=== PATIENT | female | born 1965 ===

== ENCOUNTER 2018-05-29 08:13 | Day surgery (SDC) | payer OTHER ==
[~2018-05-29] VITALS: Ht 165.1 cm; Wt 79.4 kg
[2018-05-29 08:59] VITALS: BP 139/88
[2018-05-29 18:27] VITALS: BP 147/85
== END 2018-05-29 18:15 | disposition home or self-care (01) ==
LOC: DS 08:13 → NM 09:00 → DS 09:00 → OR 12:30 → DS 18:15
PROVIDERS: Surgery
PROC: 07B50ZZ Excision of Right Axillary Lymphatic, Open Approach (ICD-10-PCS; 2018-05-29)
PROC: 05PY33Z Removal of Infusion Device from Upper Vein, Percutaneous Approach (ICD-10-PCS; 2018-05-29)
PROC: 0HBT0ZZ Excision of Right Breast, Open Approach (ICD-10-PCS; principal; 2018-05-29 12:30)
DX: C50.511 Malignant neoplasm of lower-outer quadrant of right female breast (principal); N18.9 Chronic kidney disease, unspecified; Z17.0 Estrogen receptor positive status [ER+]; Z92.21 Personal history of antineoplastic chemotherapy
CPT/HCPCS: 88329; 88344; 88361; J0690; J1170; J2405; J2704; J3010; J3490; J7120; Q9968